=== PATIENT | male | born 1945 | race Caucasian/White ===

== ENCOUNTER 2021-12-16 18:36 | Emergency (ER) | payer MEDICARE | END 2021-12-16 20:35 | disposition left against medical advice (07) | LOC: ED 18:36 | DX: Z53.21 Procedure and treatment not carried out due to patient leaving prior to being seen by health care provider (principal) | CPT/HCPCS: 99281 ==

== ENCOUNTER 2022-02-17 22:58 | Emergency (ER) | payer MEDICARE ==
--- NOTE | 2022-02-17 23:04 | ERPHSYRPT ---
- History of Present Illness Time Seen by Provider: 02/17/22 23:03 Historian: patient Exam Limitations: no limitations Physician History: This is a 76-year-old white male patient of Dr. Beckman who has known abdominal aortic aneurysm and presents with sharp and constant pain in the mid abdomen and right lower chest pain. He does not have pain in his back. He did start vitamin B6 today and he felt that maybe this was giving him the pain. He had 2 vomiting episodes. He has nausea at this time. He denies diarrhea. He has not had fevers or chills. Patient is a current daily smoker of cigarettes. Patient has an ultrasound test tomorrow to evaluate the abdominal aortic aneurysm. Timing/Duration: today Activities at Onset: none Quality: sharpness, stabbing Abdominal Pain Onset Location: periumbilical Pain Radiation: no radiation Severity of Pain-Max: moderate Severity of Pain-Current: moderate Modifying Factors: Improves With: vomiting (Twice earlier today) Associated Symptoms: chest pain (Right lower chest), nausea, vomiting (Twice earlier today) Previous symptoms: no prior history Allergies/Adverse Reactions: No Known Drug Allergies Allergy (Unverified 02/17/22 23:11) Travel Risk - International Travel Have you traveled outside of the country in past 3 weeks: No - Coronavirus Screening Are you exhibiting any of the following symptoms?: No Close contact with a COVID-19 positive Pt in past 14-21 Days: No - Review of Systems Constitutional: No Symptoms Eyes: No Symptoms Ears, Nose, & Throat: No Symptoms Respiratory: No Symptoms Cardiac: Chest Pain (Right lower chest wall) Abdominal/Gastrointestinal: Abdominal Pain (Periumbilical), Nausea, Vomiting, No Diarrhea, No Constipation Genitourinary Symptoms: No Symptoms Musculoskeletal: No Symptoms Skin: No Symptoms Neurological: No Symptoms Psychological: No Symptoms Endocrine: No Symptoms Hematologic/Lymphatic: No Symptoms Immunological/Allergic: No Symptoms All Other Systems: Reviewed and Negative - Past Medical History Pertinent Past Medical History: Yes - Past Surgical History Past Surgical History: Yes - Nursing Vital Signs Nursing Vital Signs: Initial Vital Signs Temperature 98.0 F 02/17/22 23:01 Pulse Rate 62 02/17/22 23:01 Respiratory Rate 18 02/17/22 23:01 Blood Pressure 183/87 02/17/22 23:01 O2 Sat by Pulse Oximetry 98 02/17/22 23:01 Pain Scale Pain Intensity 3 - Physical Exam General Appearance: no apparent distress, alert, anxiety Eye Exam: PERRL/EOMI, eyes nml inspection Ears, Nose, Throat Exam: normal ENT inspection, moist mucous membranes Neck Exam: normal inspection, non-tender, supple, full range of motion Respiratory Exam: normal breath sounds, chest tenderness (Right lower chest), lungs clear, airway intact, No respiratory distress Cardiovascular Exam: regular rate/rhythm, normal heart sounds, normal peripheral pulses Gastrointestinal/Abdomen Exam: soft, normal bowel sounds, tenderness (Periumbilical), No mass, No guarding, No pulsatile mass, No rebound Rectal Exam: not done Back Exam: normal inspection, normal range of motion, No CVA tenderness, No vertebral tenderness Extremity Exam: normal inspection, normal range of motion, pelvis stable Neurologic Exam: alert, oriented x 3, cooperative, general ledger bookkeeper II-XII nml as tested, normal mood/affect, nml cerebellar function, nml station & gait, sensation nml Skin Exam: normal color, warm, dry Lymphatic Exam: No adenopathy SpO2 Interpretation: normal O2 Delivery: Room Air - Course Nursing assessment & vital signs reviewed: Yes EKG Interpreted by Me: RATE (58), Sinus Rhythm, Left [place] Deviation, NORMAL QRS, NORMAL ST-T, Other (Prolonged ME interval. No evidence of acute ischemic changes on today's EKG.) Ordered Tests: Active Orders 24 hr Category Date Time Status EKG-ER Only STAT Care 02/17/22 23:17 Active IV Insertion STAT Care 02/17/22 23:17 Active ABDOMEN AND PELVIS W CONTRAST [CT] Stat Exams 02/18/22 00:08 Taken CHEST WITH CONTRAST [CT] Stat Exams 02/18/22 00:08 Taken AMYLASE Stat Lab 02/17/22 23:30 Completed CBC W DIFF Stat Lab 02/17/22 23:30 Completed CMP Stat Lab 02/17/22 23:30 Completed D-DIMER QUANTITATIVE Stat Lab 02/17/22 23:30 Completed LIPASE Stat Lab 02/17/22 23:30 Completed TROPONIN Q4H Lab 02/17/22 23:30 Completed TROPONIN Q4H Lab 02/18/22 03:30 Ordered TROPONIN Q4H Lab 02/18/22 07:30 Ordered UA W/RFX CULTURE Stat Lab 02/18/22 02:24 Completed Medication Summary Generic Name Dose Route Start Last Admin Trade Name Ad PRN Reason Stop Dose Admin Sodium Chloride 1,000 mls @ 100 mls/hr 02/17/22 23:30 02/17/22 23:37 Sodium Chloride 0.9% 1000 Ml IV 03/19/22 23:29 100 mls/hr .Q10H MASOOD Administration Discontinued Medications Generic Name Dose Route Start Last Admin Trade Name Ad PRN Reason Stop Dose Admin Morphine Sulfate 4 mg 02/17/22 23:17 02/17/22 23:44 Morphine Sulfate 4 Mg/Ml Injection IV 02/17/22 23:18 Not Given STAT ONE Morphine Sulfate Confirm 02/17/22 23:36 Morphine Sulfate 4 Mg/Ml Injection Administered 02/17/22 23:37 Dose 4 mg .ROUTE .STK-MED ONE Ondansetron HCl 4 mg 02/17/22 23:17 02/17/22 23:37 Ondansetron Hcl 4 Mg/2 Ml Vial IV 02/17/22 23:18 4 mg STAT ONE Administration Ondansetron HCl Confirm 02/17/22 23:36 Ondansetron Hcl 4 Mg/2 Ml Vial Administered 02/17/22 23:37 Dose 4 mg .ROUTE .STK-MED ONE Lab/Rad Data: Laboratory Result Diagrams 02/17/22 23:30 02/17/22 23:30 Laboratory Results 02/18/22 02/17/22 02/17/22 Range/Units 02:24 23:30 23:30 WBC (4.0-10.5) x10^3/uL RBC (4.1-5.6) x10^6/uL Hgb (12.5-18.0) g/dL Hct (42-50) % MCV (78-100) fL MCH (26-32) pg MCHC (32-36) g/dL RDW (11.5-14.0) % Plt Count (150-450) x10^3/uL MPV (7.5-11.0) fL Gran % (36.0-66.0) % Immature Gran % (Auto) (0.00-0.4) % Nucleat RBC Rel Count (0.00-0.1) % Eos # (Auto) (0-0.5) x10^3/uL Immature Gran # (Auto) (0.00-0.03) x10^3u/L Absolute Lymphs (auto) (1.0-4.6) x10^3/uL Absolute Monos (auto) (0.0-1.3) x10^3/uL Absolute Nucleated RBC (0.00-0.01) x10^3u/L Lymphocytes % (24.0-44.0) % Monocytes % (0.0-12.0) % Eosinophils % (0.00-5.0) % Basophils % (0.0-0.4) % Absolute Granulocytes (1.4-6.9) x10^3/uL Basophils # (0-0.4) x10^3/uL D-Dimer 2.31 H* (0.0-0.50) mg/L Sodium (137-145) mmol/L Potassium (3.5-5.1) mmol/L Chloride (98-107) mmol/L Carbon Dioxide (22-30) mmol/L Anion Gap (5-15) MEQ/L BUN (9-20) mg/dL Creatinine (0.66-1.25) mg/dL Estimated GFR ML/MIN Glucose (74-106) mg/dL Calcium (8.4-10.2) mg/dL Total Bilirubin (0.2-1.3) mg/dL AST (17-59) U/L ALT (0-50) U/L Alkaline Phosphatase (38-126) U/L Troponin I < 0.012 (0.000-0.034) ng/mL Serum Total Protein (6.3-8.2) g/dL Albumin (3.5-5.0) g/dL Amylase (30-110) U/L Lipase (23-300) U/L Urinalys Dipstick Clnc MAIN LAB Urine Color YELLOW (YELLOW) Urine Appearance CLEAR (CLEAR) Urine pH 7.0 (5-6) Ur Specific [place] 1.010 (1.005-1.025) POC Urine Protein Conf NEGATIVE (Negative) Urine Ketones NEGATIVE (NEGATIVE) Urine Nitrite NEGATIVE (NEGATIVE) Urine Bilirubin NEGATIVE (NEGATIVE) Urine Urobilinogen 0.2 (0-1) mg/dL Urine Leukocytes NEGATIVE (NEGATIVE) Urine WBC (Auto) NONE (0-5) /HPF Urine RBC (Auto) NONE (0-2) /HPF U Epithel Cells (Auto) NONE (FEW) /HPF Urine Bacteria (Auto) NONE (NEGATIVE) /HPF Urine RBC NEGATIVE (0-5) Willie/ul Ur Culture Indicated? NO Urine Glucose NEGATIVE (NEGATIVE) mg/dL 02/17/22 02/17/22 Range/Units 23:30 23:30 WBC 11.5 H (4.0-10.5) x10^3/uL RBC 4.34 (4.1-5.6) x10^6/uL Hgb 14.1 (12.5-18.0) g/dL Hct 42.5 (42-50) % MCV 97.9 (78-100) fL MCH 32.5 H (26-32) pg MCHC 33.2 (32-36) g/dL RDW 12.8 (11.5-14.0) % Plt Count 292 (150-450) x10^3/uL MPV 9.6 (7.5-11.0) fL Gran % 71.8 H (36.0-66.0) % Immature Gran % (Auto) 0.3 (0.00-0.4) % Nucleat RBC Rel Count 0.0 (0.00-0.1) % Eos # (Auto) 0.53 H (0-0.5) x10^3/uL Immature Gran # (Auto) 0.04 H (0.00-0.03) x10^3u/L Absolute Lymphs (auto) 1.68 (1.0-4.6) x10^3/uL Absolute Monos (auto) 0.90 (0.0-1.3) x10^3/uL Absolute Nucleated RBC 0.00 (0.00-0.01) x10^3u/L Lymphocytes % 14.7 L (24.0-44.0) % Monocytes % 7.9 (0.0-12.0) % Eosinophils % 4.6 (0.00-5.0) % Basophils % 0.7 (0.0-0.4) % Absolute Granulocytes 8.22 H (1.4-6.9) x10^3/uL Basophils # 0.08 (0-0.4) x10^3/uL D-Dimer (0.0-0.50) mg/L Sodium 137 (137-145) mmol/L Potassium 3.8 (3.5-5.1) mmol/L Chloride 98 (98-107) mmol/L Carbon Dioxide 31 H (22-30) mmol/L Anion Gap 11.9 (5-15) MEQ/L BUN 23 H (9-20) mg/dL Creatinine 1.44 H (0.66-1.25) mg/dL Estimated GFR 51.0 ML/MIN Glucose 126 H (74-106) mg/dL Calcium 9.2 (8.4-10.2) mg/dL Total Bilirubin 0.50 (0.2-1.3) mg/dL AST 22 (17-59) U/L ALT 19 (0-50) U/L Alkaline Phosphatase 101 (38-126) U/L Troponin I (0.000-0.034) ng/mL Serum Total Protein 7.5 (6.3-8.2) g/dL Albumin 4.3 (3.5-5.0) g/dL Amylase 109 (30-110) U/L Lipase 115 (23-300) U/L Urinalys Dipstick Clnc Urine Color (YELLOW) Urine Appearance (CLEAR) Urine pH (5-6) Ur Specific [place] (1.005-1.025) POC Urine Protein Conf (Negative) Urine Ketones (NEGATIVE) Urine Nitrite (NEGATIVE) Urine Bilirubin (NEGATIVE) Urine Urobilinogen (0-1) mg/dL Urine Leukocytes (NEGATIVE) Urine WBC (Auto) (0-5) /HPF Urine RBC (Auto) (0-2) /HPF U Epithel Cells (Auto) (FEW) /HPF Urine Bacteria (Auto) (NEGATIVE) /HPF Urine RBC (0-5) Willie/ul Ur Culture Indicated? Urine Glucose (NEGATIVE) mg/dL - Progress Progress: improved, pain not gone completely, re-examined Progress Note: 02/18/22 02:50 CTA of the chest shows no acute cardiopulmonary process. There is no pulmonary embolus. There is no abnormality in the thoracic aorta. CTA of the abdomen with shows no acute intra-abdominal or pelvic abnormality 02/18/22 02:51 Patient refused offer for any narcotic medications here or for home Counseled pt/family regarding: lab results, diagnosis, need for follow-up, rad results - Departure Departure Disposition: Home Clinical Impression: Abdominal pain, Right-sided chest pain Condition: Stable Critical Care Time: No Referrals: KRYSTEN BECKMAN MD [Primary Care Provider] - Follow up/PCP as directed Additional Instructions: Keep your abdominal ultrasound appointment today. Follow-up with your primary care physician for further evaluation management.
[2022-02-17] MEDS ORDERED: Zofran 4 MG/2 ML VIAL IV ONE (23:17)
[2022-02-17] MEDS ORDERED: Sodium Chloride 0.9% 1000 ML 1,000 ML IV SCH (23:30)
[2022-02-17] MEDS ORDERED: Zofran 4 MG/2 ML VIAL ONE (23:36)
[2022-02-17] MEDS ORDERED: MORPHINE SULFATE 4 MG INJ ONE (23:36)
[2022-02-17] MEDS ORDERED: Sodium Chloride 0.9% 1000 ML 1,000 ML ONE (23:36)
[2022-02-17 23:37] LABS: Absolute Neutrophil Ct (ANC) 8.22 x10^3/uL (1.4-6.9); Basophil (Absolute #) 0.08 x10^3/uL (0-0.4); Eosinophil % 4.6 % (0.00-5.0); Eosinophil (Absolute #) 0.53 x10^3/uL (0-0.5); Hematocrit 42.5 % (42-50); Hemoglobin 14.1 g/dL (12.5-18.0); Lymphocyte (Absolute #) 1.68 x10^3/uL (1.0-4.6); Lymphocytes % 14.7 % (24.0-44.0); Mean Cell Volume 97.9 fL (78-100); Mean Corpuscular Hemoglobin 32.5 pg (26-32); Mean Corpuscular Hgb Concent. 33.2 g/dL (32-36); Mean Platelet Volume 9.6 fL (7.5-11.0); Monocytes % 7.9 % (0.0-12.0); Neutrophil % 71.8 % (36.0-66.0); Platelet Count 292 x10^3/uL (150-450); Red Blood Count 4.34 x10^6/uL (4.1-5.6); Red Cell Distribution Width 12.8 % (11.5-14.0); White Blood Count 11.5 x10^3/uL (4.0-10.5)
[2022-02-17] MEDS: MORPHINE SULFATE 4 MG INJ IV ONE ×2 (23:38→23:44)
[2022-02-17 23:56] LABS: ALBUMIN 4.3 g/dL (3.5-5.0); ANION GAP 11.9 MEQ/L (5-15); BILIRUBIN,TOTAL 0.5 mg/dL (0.2-1.3); Calcium 9.2 mg/dL (8.4-10.2); Creatinine 1 1.44 mg/dL (0.66-1.25); Potassium 3.8 mmol/L (3.5-5.1); Total Protein 7.5 g/dL (6.3-8.2)
[2022-02-18 02:17] VITALS: BP 160/88; PULSE 59; O2SAT 100
[2022-02-18 02:32] LABS: Appearance CLEAR (CLEAR); Bilirubin NEGATIVE (NEGATIVE); Dipstick done @ ? MAIN LAB; Glucose NEGATIVE (NEGATIVE); Ketones NEGATIVE (NEGATIVE); Nitrite NEGATIVE (NEGATIVE); Protein,Urine Dip NEGATIVE (Negative); RBC NEGATIVE Ery/ul (0-5); Urine Cultured Indicated? NO; Urobilinogen 0.2 mg/dL (0-1)
--- NOTE | 2022-02-18 08:52 | XRAY ---
Indication: Right chest pain, nausea, vomiting, and elevated d-dimer. Multiple contiguous axial images obtained through the chest using 100 cc Isovue 370 contrast and PE protocol. Comparison: None Good opacification of the pulmonary arteries to include the lobar and segmental branches. No pulmonary embolus. Heart not enlarged with scattered coronary calcifications. Aorta is moderately arteriosclerotic without aneurysm/dissection. Tiny subcarinal and right perihilar calcified nodes. No pathologic mediastinal/hilar lymphadenopathy. Lungs hyperinflated with mild right lung base calcified pleural plaquing. No suspicious pulmonary mass, infiltrate, consolidation, or effusion. Bony thorax intact with osteopenia and mild/moderate degenerative changes throughout the spine. CT abdomen/pelvis reported separately. Impression: 1. Negative pulmonary embolus. No acute cardiopulmonary abnormalities. 2. Chronic findings including arteriosclerotic disease, right base calcified pleural plaquing, chronic bony findings, and old granulomatous disease. Comment: Preliminary interpretation made by [facility]. No critical discrepancy.
--- NOTE | 2022-02-18 08:58 | XRAY ---
Indication: Abdomen pain, nausea, and vomiting. Multiple contiguous axial images obtained through the abdomen and pelvis using 100 cc Isovue 370 contrast. Comparison: None CT chest reported separately. Noncontrasted stomach and bowel loops appear nonobstructed. Mild diffuse scattered colonic fecal debris throughout. No free fluid/air. Right lobe liver demonstrates small hemangioma. Both kidneys enhance and excrete with 3.5 cm left renal cyst. Enlarged prostate gland impresses on the base of the bladder. Remaining liver, gallbladder, pancreas, spleen, adrenal glands, kidneys, ureters, and bladder are unremarkable for noncontrast exam. Moderate scattered aortoiliac calcifications with tortuous and ectatic aorta. 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 Additional 5.0 x 3.9 cm distal AAA. No pathologic retroperitoneal lymphadenopathy. Osseous structures intact with osteopenia and mild/moderate degenerative changes throughout the spine and both hips. Impression: 1. Mild fecal stasis, hepatic hemangioma, left renal cyst, and enlarged prostate gland. 2. Arteriosclerotic disease with multifocal AAA as detailed. 3. Osteopenia and degenerative changes. Comment: Preliminary interpretation made by [facility]. No critical discrepancy.
== END 2022-02-18 03:07 | disposition home or self-care (01) ==
LOC: ED 22:58
DX: R10.33 Periumbilical pain (principal); R07.9 Chest pain, unspecified; R11.2 Nausea with vomiting, unspecified; Z72.0 Tobacco use
CPT/HCPCS: 36000; 36415; 71260; 74177; 80053; 81015; 82150; 83690; 84484; 85025; 85379; 93005; 96374; 96375; 99284; J2270; J2405

== ENCOUNTER 2023-09-28 05:36 | Day surgery (SDC) | payer MEDICARE ==
[2023-09-28 06:08] VITALS: RESP 18
[2023-09-28] MEDS: Sodium Chloride 0.9% 1000 ML 1,000 ML IV SCH (06:27)
[2023-09-28] MEDS ORDERED: DIPRIVAN 200 MG/20 ML IV ONE (07:31)
[2023-09-28] MEDS ORDERED: Versed 2 MG/2 ML Injection ONE (07:31)
[2023-09-28] MEDS ORDERED: Xylocaine-Mpf 2% 5 Ml Vial ONE (07:31)
[2023-09-28 08:14] VITALS: TEMP 97.7; O2SAT 99
[2023-09-28 08:31] VITALS: BP 147/94; PULSE 55
--- NOTE | 2023-09-28 15:18 | OP ---
SURGERY DATE/TIME: 09/28/2023 0732 PREOPERATIVE DIAGNOSIS: Screening exam, history of colon polyps. POSTOPERATIVE DIAGNOSIS: Normal colon. PROCEDURE: Colonoscopy. SURGEON: Dr. Kraus. ANESTHESIA: Medications given by anesthesia department. HISTORY: The patient is a 78-year-old white male patient presenting now for screening colonoscopy. The patient reports it has been three years since his last exam and at that time polyps were found. The patient was suggested to have colonoscopy for surveillance. He was appraised of the risks of the procedure including the risk of perforation, phlebitis, untoward reaction to medication, bleeding and missed lesions. The patient verbalized his understanding and desired to have the procedure performed. DESCRIPTION OF PROCEDURE: The patient was given the medications by the anesthesia department. He had continuous pulse oximetry, ECG monitoring and intermittent blood pressure monitoring during the examination. He was placed in the left lateral decubitus position. Digital rectal examination was performed and revealed normal anal sphincter tone, no masses. The flexible Olympus pediatric colonoscope was used to intubate the rectum. A view of the colon was developed sequentially to the cecum. Upon insertion and withdrawal, including a retroflex view in the rectum, no mucosal lesions were encountered. The scope was removed from the patient who tolerated the procedure well and was sent back to OP recovery in good condition. The prep was noted to be fair to good.
== END 2023-09-28 08:35 | disposition home or self-care (01) ==
LOC: SDC 05:36
PROVIDERS: ATTEND Family Medicine
DX: Z12.11 Encounter for screening for malignant neoplasm of colon (principal); Z09 Encounter for follow-up examination after completed treatment for conditions other than malignant neoplasm; Z86.010 Personal history of colon polyps; E11.9 Type 2 diabetes mellitus without complications
CPT/HCPCS: 82947; G0121; J2250; J2704